=== PATIENT | female | born 1965 | race Caucasian/White ===

== ENCOUNTER 2017-07-30 17:32 | Emergency (ER) | payer OTHER ==
[~2017-07-30] VITALS: Ht 165.1 cm; Wt 80.0 kg
[~2017-07-30 17:32] MED LIST: ULTR50TA PO
[2017-07-30 17:38] VITALS: PULSE 76; RESP 16; TEMP 97.8; O2SAT 98
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
[2017-07-30 17:56] VITALS: BP 185/105
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
[2017-07-30 18:37] VITALS: BP 181/97
[2017-07-30] MEDS ORDERED: IBUP-232 PO (18:56)
[2017-07-30 19:10] VITALS: BP 174/112
== END 2017-07-30 19:12 | disposition home or self-care (01) ==
LOC: PHED 17:32
DX: F07.81 Postconcussional syndrome (principal); S13.4XXA Sprain of ligaments of cervical spine, initial encounter; R07.89 Other chest pain; I10 Essential (primary) hypertension; F17.210 Nicotine dependence, cigarettes, uncomplicated; V49.9XXA Car occupant (driver) (passenger) injured in unspecified traffic accident, initial encounter
CPT/HCPCS: 71020; 99283